=== PATIENT | female | born 2005 | race Caucasian/White ===

== ENCOUNTER 2024-04-07 09:05 | Day surgery (SDC) | payer OTHER, SELFPAY ==
[2024-04-07] VITALS (7 sets, daily range): BP systolic 109–114; BP diastolic 61–87; PULSE 85–107; RESP 16–17; TEMP 36.3–37.3; O2SAT 96–100; BMI 22.7
[2024-04-07] MEDS: Lactated Ringers 1,000 ML 15 ML IV (09:34)
[2024-04-07 09:36] LABS: Internal QC Validated? YES +Cl - CLEAR BKGD; Pregnancy, Urine Negative Negative
--- NOTE | 2024-04-07 10:16 | PCM.PRE.AN2 ---
ASA Classification* ASA Classification ASA Classification: 2 Assessment & Plan Anesthesia* Anesthesia Assessment Anesthesia Assessment: Discussed sedation and/or anesthesia options, risks, benefits, and alternatives with patient/parents/legal guardian/POA. Questions invited. The patient/parents/legal guardian/POA seems to understand and agrees to proceed with anesthesia plan. Reviewed the physical assessment, medical history, allergy history and patient home medications list prior to surgery/procedure/anesthetic and documented any changes. Performed airway and anesthesia risk assessments. 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 When Was Last Pacemaker Check QUESTION #4 FULL TEXT: You/Your Family Experience fever (hyperthermia) with Anesthesia Last Oral Intake Last Oral intake: Last Oral Intake NPO since 00:00 04/07/24 09:35 Meds taken in AM with sips of Yes 04/07/24 09:35 water? Meds patient instructed to famotidine 04/07/24 09:35 take am of surgery PONV PONV - injection molding process technician: PONV - injection molding process technician Female Yes 03/31/24 11:35 HX of Motion Sickness No 03/31/24 11:35 HX of N/V After Surgery No 03/31/24 11:35 Non-Smoker Yes 03/31/24 11:35 Duration of Surgery greater No 03/31/24 11:35 than 60 minutes Number of Risk Factors 2 03/31/24 11:35 PONV Score Moderate Risk 03/31/24 11:35 Height & Weight Height & Weight: Anesthesia: Height & Weight Height 5 ft 6 in 04/07/24 09:35 Weight: 64 kg 04/07/24 09:35 Body Mass Index (BMI) 22.7 04/07/24 09:35 Respiratory Assessment Respiratory Assessment - injection molding process technician: Respiratory Tract Infection Hx - injection molding process technician Hx Respiratory Tract Infection No 03/31/24 11:35 STOP Sleep Apnea STOP Sleep Apnea - injection molding process technician: STOP Sleep Apnea - injection molding process technician Hx Hypertension No 03/31/24 11:35 Hx Sleep Apnea No 03/31/24 11:35 CPAP No 03/31/24 11:35 BIPAP No 03/31/24 11:35 Do you snore loudly (louder No 03/31/24 11:35 than talking or can be heard Do you often feel tired/ No 03/31/24 11:35 fatigued/ sleepy during daytime? Has anyone observed you stop No 03/31/24 11:35 breathing during sleep? STOP Results Negative 03/31/24 11:35 QUESTION #5 FULL TEXT : Do you snore loudly (louder than talking or can be heard through closed doors)? Tobacco Use History Tobacco Use History - injection molding process technician: Tobacco Use History - injection molding process technician Tobacco Use Smoking Status Never smoker 03/31/24 11:35 Hx Tobacco Use No 03/31/24 11:35 Years Smoking Packs Smoked per Day Smoking Cessation Date was within the last 15 years Hx Smoking Cessation Date Hx Smoking Cessation Counseling Hematologic Medial History Hematologic Hx - injection molding process technician: Hematologic Medical Hx - belt measurer Hx of Blood Transfusion No 03/31/24 11:35 Hx of Transfusion in last 3 No 03/31/24 11:35 Months Date of Last Transfusion (if within last 3 months) Ever experience any problems No 03/31/24 11:35 with transfusion(s)? Specify any problems Hx of Preganancy in last 3 No 03/31/24 11:35 Months Nurse Filling Out Transfusion VCHRISTIN 03/31/24 11:35 & Questions: Date: 03/31/24 03/31/24 11:35 Time: 11:37 03/31/24 11:35 Patient unable to answer at this time (ie. confused, unrespo /Reproduction History /Reproductive History - injection molding process technician: /Reproductive Hx- injection molding process technician Hx Now No 03/31/24 11:35 Gestational Age (in weeks): EDC: Hx Hx Para Hx Section SAB No 03/31/24 11:35 Active Medications Active Medications: Current Medications Generic Name Dose Route Start Last Admin Trade Name Freq PRN Reason Stop Dose Admin Lactated Ringer's 1,000 mls @ 15 mls/hr 04/07/24 09:30 04/07/24 09:34 IV 15 mls/hr .Q48H MONAE Administration PFSH Medical History Wears glasses Anxiety Scoliosis Migraine headache Mast cell activation syndrome History of IBS Gastric reflux Non-smoker Chronic cough History of Holter monitoring Cardiology follow-up encounter Home Medications ?Medication ?Instructions ?Recorded ?Last Taken ?Type famotidine 20 mg tablet (Acid 20 mg PO BID 03/31/24 04/07/24 History Controller) mirtazapine 15 mg tablet 30 mg PO DAILY 03/31/24 04/06/24 History quetiapine 25 mg tablet 50 mg PO QHS 03/31/24 04/06/24 History Allergy/AdvReac Type Severity Reaction Status Date / Time No Known Allergies Allergy Verified 04/07/24 09:34 Surgical History Hx of tooth extraction History of esophagogastroduodenoscopy (EGD) Hx of colonoscopy History of hymenectomy Social History Smoking Status: Never smoker Review of Systems (Anesthesia) ROS Narrative System reviewed and no additional complaints, except as documented.
--- NOTE | 2024-04-07 10:30 | PCM.POST.ANE ---
Anesthesia: Postop Eval I Current Vital Signs Temperature: 98.2 F Pulse Rate: 85 Blood Pressure: 113/76 Respiratory Rate: 16 Pulse Ox: 98 Oxygen Delivery Method: Room Air Assessment Airway patent: Yes Spontaneous unlabored respirations: Yes Mental status: Awake and Calm nausea: No Vomiting: No Anesthesia Complication: No Fluid Hydration Crystalloid volume administer (ml): 400 Total IV fluid infused: 400 Progress Note Anesthesia document: Postop Eval 1 completed: Yes
--- NOTE | 2024-04-07 10:45 | EX.PCM.DISCH ---
Discharge Instructions Diet Discharge Diet: No restrictions Activity Discharge Activity: Return to Normal Activity Dressing / Incision Call your doctor if you observe: Fever of 101 or Higher, Inability to urinate and Inability to have a bowel movement Follow Up Care Please Follow Up With: Judi Block MD When: The office will call to make follow-up arrangements. Test Results: Test results from this visit will be discussed in further detail at your follow-up appointment, if applicable. Discharge Plan Admission Attending Provider: Judi Block Primary Care Provider: Keely Haile Instructions Print Language: Ukrainian Discharge Orders/Prescriptions Prescriptions: Continued quetiapine 25 mg tablet 50 mg PO QHS mirtazapine 15 mg tablet 30 mg PO DAILY famotidine [Acid Controller] 20 mg tablet 20 mg PO BID Disposition Disposition (needs filled in before D/C Order can be placed): Home, Self Care
--- NOTE | 2024-04-07 10:45 | PCM.OPRPT ---
Report of Operation Date of Procedure: 04/07/24 Pre-Operative Diagnosis: Urinary incontinence, straining to void Post-Operative Diagnosis: Same Surgery/Procedure Performed:: Pelvic exam under anesthesia, cystourethroscopy Surgeon: Judi Block Type of Anesthesia: MAC Description of Procedure: The patient is a 18-year-old female struggling with urinary issues including mixed incontinence and straining to void. She now presents for further evaluation with pelvic exam and cystoscopy under anesthesia. Informed consent was obtained. The patient was taken to the operating room and placed on the operating room table. Anesthesia monitored the head, neck, airway, IV access and vital signs throughout the case. Once anesthesia was appropriately administered, she was placed into dorsolithotomy position and was prepped and draped in usual sterile fashion. Pelvic examination revealed no evidence of prolapse, mass, trigger point. The cystoscope was inserted through the urethra under direct visualization into the urinary bladder. The mucosa was visualized in its entirety revealing no evidence of mass, erythema, ulceration or foreign body. The ureteral orifices were located in the correct anatomic position. The patient's bladder was then emptied and the cystoscope was removed. She was awakened and taken to the recovery room in good condition. There were no complications during this procedure. Grafts/Implants Used: None Complications None Admit VTE Documentation VTE Present on Admission: Yes VTE Mechan Device Prophylaxis: SCD's VTE Pharm Prophylaxis ordered?: No Reason prophylaxis not ordered:: Treatment Not Indicated
--- NOTE | 2024-04-07 11:18 | POSTOPAN2_ITS ---
Anesthesia Postop Eval I Sum Postop Eval Completion status Anesthesia document: Postop Eval 1 completed: Yes Anesthesia Postop Eval I Summary Anesthesia Postop Eval I Summary: Anesthesia Postop Eval I: Assessment Summary Airway patent Yes 04/07/24 10:31 MERCHANDISE FOR RESALE PURCHASING AGENT.SCHR Spontaneous unlabored Yes 04/07/24 10:31 MERCHANDISE FOR RESALE PURCHASING AGENT.SCHR respirations Mental status Awake,Calm 04/07/24 10:31 MERCHANDISE FOR RESALE PURCHASING AGENT.SCHR nausea No 04/07/24 10:31 MERCHANDISE FOR RESALE PURCHASING AGENT.SCHR Vomiting No 04/07/24 10:31 MERCHANDISE FOR RESALE PURCHASING AGENT.SCHR Anesthesia Postop Eval I: Fluid Summary Crystalloid volume administer 400 04/07/24 10:31 MERCHANDISE FOR RESALE PURCHASING AGENT.SCHR (ml) Colloids volume administered ( ml) Blood Product volume administered (ml) Total IV fluid infused 400 04/07/24 10:31 MERCHANDISE FOR RESALE PURCHASING AGENT.SCHR Anesthesia Postop Eval I: Summary Notes Anesthesia Complication No 04/07/24 10:31 MERCHANDISE FOR RESALE PURCHASING AGENT.SCHR Anesthesia Complication Comment: Post-operative progress note Anesthesia: Postop Eval II Evaluation Mental status: Awake Pain Level: 0 nausea: No Vomiting: No
--- NOTE | 2024-04-07 11:18 | PCM.POSTANE2 ---
Anesthesia Postop Eval I Sum Postop Eval Completion status Anesthesia document: Postop Eval 1 completed: Yes Anesthesia Postop Eval I Summary Anesthesia Postop Eval I Summary: Anesthesia Postop Eval I: Assessment Summary Airway patent Yes 04/07/24 10:31 CLOUD ENGINEER.[email or web address] Spontaneous unlabored Yes 04/07/24 10:31 CLOUD ENGINEER.SCHR respirations Mental status Awake,Calm 04/07/24 10:31 CLOUD ENGINEER.SCHR nausea No 04/07/24 10:31 CLOUD ENGINEER.SCHR Vomiting No 04/07/24 10:31 CLOUD ENGINEER.SCHR Anesthesia Postop Eval I: Fluid Summary Crystalloid volume administer 400 04/07/24 10:31 CLOUD [email or web address].SCHR (ml) Colloids volume administered ( ml) Blood Product volume administered (ml) Total IV fluid infused 400 04/07/24 10:31 CLOUD ENGINEER.SCHR Anesthesia Postop Eval I: Summary Notes Anesthesia Complication No 04/07/24 10:31 CLOUD ENGINEER.SCHR Anesthesia Complication Comment: Post-operative progress note Anesthesia: Postop Eval II Evaluation Mental status: Awake Pain Level: 0 nausea: No Vomiting: No
== END 2024-04-07 11:05 | disposition home or self-care (01) ==
LOC: SDC 09:12 → AC 09:13
PROVIDERS: Anesthesiology; Referring Provider Urology; Visit Provider Urology
PROC: 0TJB8ZZ Inspection of Bladder, Via Natural or Artificial Opening Endoscopic (ICD-10-PCS; CPT 57410; principal; 2024-04-07 10:35)
DX: R33.9 Retention of urine, unspecified (principal); K21.9 Gastro-esophageal reflux disease without esophagitis; F84.0 Autistic disorder; R39.16 Straining to void; R15.1 Fecal smearing; R10.2 Pelvic and perineal pain; Z90.79 Acquired absence of other genital organ(s); N39.46 Mixed incontinence
CPT/HCPCS: 52000; 57410; 81025; J7120; J2405